=== PATIENT | male | born 1960 | race African-American/Black ===

== ENCOUNTER 2018-11-22 11:19 | Inpatient (IN) | payer OTHER ==
[2018-11-22 11:44] VITALS: BMI 27.3
--- NOTE | 2018-11-22 13:01 | HP ---
CIWA Score - Admission Criteria OASAS Guidelines: Admission for Medically Managed Detox: Requires at least one of the followin. CIWA greater than 12 2. Seizures within the past 24 hours 3. Delirium tremens within the past 24 hours 4. Hallucinations within the past 24 hours 5. Acute intervention needed for co occurring medical disorder 6. Acute intervention needed for co occurring psychiatric disorder 7. Severe withdrawal that cannot be handled at a lower level of care (continued vomiting, continued diarrhea, abnormal vital signs) requiring intravenous medication and/or fluids 8. Admission ROS [facility] Allergies/Adverse Reactions: Allergies Allergy/AdvReac Type Severity Reaction Status Date / Time No Known Allergies Allergy Verified 11/22/18 11:37 History of Present Illness: pt here requesting rehab from cocaine and etoh use , reports etoh use 4 x / week up to 1 pint , latets use 1 week ago , + tremors if not drinking alcohol, denies symptoms at this time, denies seizures or blackouts , first age of use 16 , with intermittent periods of sobriety , longest 5 years " I just stopped " cocaine : 80-100 $ / day , denies ivdu , latest use Sunday , denies daily use , reports 3 x/ week . denies other illicits tobacco : 1/2 ppd , interested in smoking cessation pmhx : htn , copd , HSV II ( penile ) , dizziness . pshx : denies psych : denies shx : lives alone , unemployed , on SSD for back pain , denies legal issues Exam Limitations: No Limitations - Ebola screening Have you traveled outside of the country in the last 21 days: No Have you had contact with anyone from an Ebola affected area: No Do you have a fever: No - Review of Systems Constitutional: No Symptoms Reported EENT: reports: No Symptoms Reported Respiratory: reports: No Symptoms reported Cardiac: reports: No Symptoms Reported GI: reports: No Symptoms Reported : reports: No Symptoms Reported Musculoskeletal: reports: No Symptoms Reported Integumentary: reports: Other (varicose vv R LE) Neuro: reports: No Symptoms reported Endocrine: reports: No Symptoms Reported Psychiatric: reports: Orientated x3 Patient History - Smoking Cessation Smoking history: Current every day smoker Have you smoked in the past 12 months: Yes Initiated information on smoking cessation: No - Substances abused Alcohol Substance route: Oral Frequency: Daily Amount used: VODKA- 1.5 Age of first use: 16 Date of last use: 11/18/18 Crack Substance route: Smoking Frequency: 3-6 times per week Amount used: $80 Age of first use: 24 Date of last use: 11/17/18 Family Disease History - Family Disease History Family Disease History: Heart Disease: Brother (2 d. heart dz ), Other: Father (d. cva), Mother (d. 80 tbi s/p fall ), Brother Other Family History: no children Admission Physical Exam S - Vital Signs Vital Signs: Vital Signs - 24 hr 11/22/18 11:34 Temperature 98.4 F Pulse Rate 90 Respiratory 18 Rate Blood Pressure 117/72 - Physical General Appearance: Yes: No Apparent Distress HEENTM: Yes: EOMI, Hearing grossly Normal, Normocephalic, Normal Voice, Other (g ;asses , upper and lower dentures) Respiratory: Yes: Chest Non-Tender, No Respiratory Distress, No Accessory Muscle Use Neck: Yes: No masses,lesions,Nodules, Trachea in good position Cardiology: Yes: Regular Rhythm, Regular Rate, S1, S2 Abdominal: Yes: Non Tender, Soft Genitourinary: Yes: Frequency Back: Yes: Normal Inspection Musculoskeletal: Yes: Gait Steady Extremities: Yes: Non-Tender Neurological: Yes: Fully Oriented, Alert, Motor Strength 5/5 Integumentary: Yes: Warm, Other (varicose vv R LE) - Diagnostic (1) Cocaine abuse Current Visit: Yes Status: Chronic (2) Alcohol abuse Current Visit: Yes Status: Chronic (3) Nicotine dependence Current Visit: Yes Status: Chronic Qualifiers: Nicotine product type: cigarettes Breathalyzer - Breathalyzer Breathalyzer: 0 Urine Drug Screen - Test Device Lot number: [id number] Expiration date: 08/15/20 - Control Is test valid?: Yes - Results Drug screen NEGATIVE: No Urine drug screen results: OBIE-Cocaine Inpatient Rehab Admission - Rehab Decision to Admit Inpatient rehab admission?: Yes - Initial Determination Are CD services needed?: Yes Free of communicable disease: Yes Not in need of hospitalization: Yes - Rehab Admission Criteria Previous failed treatment: Yes Poor recovery environment: No Comorbidities: No Lacks judgement: Yes Patient is meeting Inpatient Rehab admission criteria:: Yes
[2018-11-22] MEDS ORDERED: ACETAMINOPHEN 325 MG TABLET (FP) PO PRN (13:06)
[2018-11-22] MEDS ORDERED: P-EPHED 60MG/TRIPROLIDI 2.5MG TABLET PO PRN (13:06)
[2018-11-22] MEDS ORDERED: MAG HYDROX/AL HYDROX/SIMETH 30 ML UNIT-DOSE CUP PO PRN (13:06)
[2018-11-22] MEDS ORDERED: IBUPROFEN 400 MG TABLET (FP) PO PRN (13:06)
[2018-11-22] MEDS ORDERED: MENTHOL/PHENOL 1 EACH UD MM PRN (13:06)
[2018-11-22] MEDS ORDERED: MAGNESIUM CITRATE 300 ML BOTTLE PO PRN (13:06)
[2018-11-22] MEDS ORDERED: MAGNESIUM HYDROX 2400MG/30ML ORAL SUSPENSION 30 ML CUP PO PRN (13:06)
[2018-11-22] MEDS ORDERED: NICOTINE POLACRILEX 2 MG GUM BUC PRN (13:06)
[2018-11-22] MEDS ORDERED: guaiFENesin 200 MG/10 ML 10 ML UNIT-DOSE CUPS PO PRN (13:06)
[2018-11-22] MEDS ORDERED: ALBUTEROL SO4 0.083% IH SOL 2.5 MG/3 ML VIAL.NEB. NEB PRN (13:08)
[2018-11-22] MEDS ORDERED: TUBERCULIN PPD 5 TU/0.1ML VIAL ID ONE (14:52)
[2018-11-22 17:09] LABS: HEMATOCRIT 42.9 % (35.4-49); HEMOGLOBIN 13.5 GM/dL (11.7-16.9); MCHC 31.4 g/dl (32.0-35.9); MEAN CELL VOLUME 76.4 fl (80-96); MEAN PLT VOLUME 8.5 fl (7.5-11.1); PLATELET COUNT 166 K/MM3 (134-434); RBC 5.61 M/mm3 (4.00-5.60); RDW 14.4 % (11.9-15.9); WHITE BLOOD COUNT 5.2 K/mm3 (4.0-10.0)
[2018-11-22 17:11] LABS: ALBUMIN 3.7 g/dl (3.4-5.0); BILIRUBIN,TOTAL 0.3 mg/dL (0.2-1); CALCIUM 9.2 mg/dL (8.5-10.1); CREATININE 1.1 mg/dL (0.55-1.3); POTASSIUM 3.6 mmol/L (3.5-5.1); TOT PROT 7.1 g/dl (6.4-8.2)
[2018-11-22] MEDS: TAMSULOSIN HCL 0.4 MG CAP PO SCH (21:30)
[2018-11-22] MEDS: THIAMINE HCL 100 MG TABLET (FP) PO SCH (21:30)
[2018-11-22] MEDS: MELATONIN 5 MG TABLETS PO PRN (21:30)
[2018-11-23] MEDS: LISINOPRIL 10 MG TABLET (FP) PO SCH (09:41)
[2018-11-23] MEDS: PRENATAL VITAMINS W/ FOLIC ACID TABLET (FP) PO SCH (09:41)
[2018-11-23] MEDS: amLODIPine BESYLATE 10 MG TABLET (FP) PO SCH (09:41)
[2018-11-23] MEDS: valACYclovir HCL 500 MG TABLET (FP) PO SCH (09:41)
[2018-11-23] MEDS: TIOTROPIUM BROMIDE 2.5 MCG (SPIRIVA) RESPIMAT INHALER IH SCH (09:42)
[2018-11-23 11:56] LABS: EPI CELLS 16.4 /HPF (0-5/HPF); HYALINE CASTS 158 /lpf (0-8); URINE APPEARANCE CLOUDY; URINE BACTERIA 8.3 /hpf (NEGATIVE); URINE BILIRUBIN NEGATIVE (NEGATIVE); URINE COLOR DK YELLOW; URINE GLUCOSE (UA) NEGATIVE (NEGATIVE); URINE KETONE NEGATIVE (NEGATIVE); URINE LEUK ESTERASE 2+ (NEGATIVE); URINE NITRITE NEGATIVE (NEGATIVE); URINE PROTEIN TRACE (NEGATIVE); URINE RBC 8 /hpf (0-4); URINE WBC 88 /hpf (0-5)
[2018-11-23 12:25] LABS: URINE CRYSTALS CAOX PRESENT /hpf
[2018-11-23] MEDS: THIAMINE HCL 100 MG TABLET (FP) PO SCH (21:16)
[2018-11-23] MEDS: TAMSULOSIN HCL 0.4 MG CAP PO SCH (21:16)
[2018-11-23] MEDS: MELATONIN 5 MG TABLETS PO PRN (21:17)
[2018-11-23] MEDS: MECLIZINE HCL 25 MG TABLET (FP) PO PRN (21:17)
[2018-11-24] MEDS: MECLIZINE HCL 25 MG TABLET (FP) PO PRN ×2 (07:39→21:03)
[2018-11-24] MEDS: LISINOPRIL 10 MG TABLET (FP) PO SCH (09:32)
[2018-11-24] MEDS: valACYclovir HCL 500 MG TABLET (FP) PO SCH (09:33)
[2018-11-24] MEDS: amLODIPine BESYLATE 10 MG TABLET (FP) PO SCH (09:33)
[2018-11-24] MEDS: PRENATAL VITAMINS W/ FOLIC ACID TABLET (FP) PO SCH (09:33)
[2018-11-24] MEDS: TIOTROPIUM BROMIDE 2.5 MCG (SPIRIVA) RESPIMAT INHALER IH SCH (09:34)
[2018-11-24] MEDS: TAMSULOSIN HCL 0.4 MG CAP PO SCH (21:03)
[2018-11-24] MEDS: MELATONIN 5 MG TABLETS PO PRN (21:03)
[2018-11-24] MEDS: THIAMINE HCL 100 MG TABLET (FP) PO SCH (22:14)
[2018-11-25] MEDS: MECLIZINE HCL 25 MG TABLET (FP) PO PRN ×3 (07:37→21:12)
[2018-11-25] MEDS: LISINOPRIL 10 MG TABLET (FP) PO SCH (09:38)
[2018-11-25] MEDS: PRENATAL VITAMINS W/ FOLIC ACID TABLET (FP) PO SCH (09:38)
[2018-11-25] MEDS: valACYclovir HCL 500 MG TABLET (FP) PO SCH (09:38)
[2018-11-25] MEDS: amLODIPine BESYLATE 10 MG TABLET (FP) PO SCH (09:38)
[2018-11-25] MEDS: TIOTROPIUM BROMIDE 2.5 MCG (SPIRIVA) RESPIMAT INHALER IH SCH (09:39)
[2018-11-25] MEDS: THIAMINE HCL 100 MG TABLET (FP) PO SCH (21:11)
[2018-11-25] MEDS: MELATONIN 5 MG TABLETS PO PRN (21:12)
[2018-11-25] MEDS: TAMSULOSIN HCL 0.4 MG CAP PO SCH (21:12)
[2018-11-26] MEDS: amLODIPine BESYLATE 10 MG TABLET (FP) PO SCH (09:52)
[2018-11-26] MEDS: PRENATAL VITAMINS W/ FOLIC ACID TABLET (FP) PO SCH (09:52)
[2018-11-26] MEDS: valACYclovir HCL 500 MG TABLET (FP) PO SCH (09:52)
[2018-11-26] MEDS: LISINOPRIL 10 MG TABLET (FP) PO SCH (09:52)
[2018-11-26] MEDS: MECLIZINE HCL 25 MG TABLET (FP) PO PRN ×3 (09:53→21:41)
[2018-11-26] MEDS: TIOTROPIUM BROMIDE 2.5 MCG (SPIRIVA) RESPIMAT INHALER IH SCH (09:54)
[2018-11-26] MEDS: TAMSULOSIN HCL 0.4 MG CAP PO SCH (21:40)
[2018-11-26] MEDS: THIAMINE HCL 100 MG TABLET (FP) PO SCH (21:40)
[2018-11-26] MEDS: MELATONIN 5 MG TABLETS PO PRN (21:41)
[2018-11-27] MEDS: MECLIZINE HCL 25 MG TABLET (FP) PO PRN (07:27)
[2018-11-27] MEDS: amLODIPine BESYLATE 10 MG TABLET (FP) PO SCH (10:06)
[2018-11-27] MEDS: PRENATAL VITAMINS W/ FOLIC ACID TABLET (FP) PO SCH (10:06)
[2018-11-27] MEDS: LISINOPRIL 10 MG TABLET (FP) PO SCH (10:06)
[2018-11-27] MEDS: valACYclovir HCL 500 MG TABLET (FP) PO SCH (10:06)
[2018-11-27] MEDS: TIOTROPIUM BROMIDE 2.5 MCG (SPIRIVA) RESPIMAT INHALER IH SCH (10:07)
[2018-11-27] MEDS ORDERED: MECLIZINE HCL 25 MG TABLET (FP) PO ONE (14:00)
[2018-11-27] MEDS: THIAMINE HCL 100 MG TABLET (FP) PO SCH (21:08)
[2018-11-27] MEDS: MECLIZINE HCL 25 MG TABLET (FP) PO SCH (21:09)
[2018-11-27] MEDS: TAMSULOSIN HCL 0.4 MG CAP PO SCH (21:09)
[2018-11-27] MEDS: MELATONIN 5 MG TABLETS PO PRN (21:09)
[2018-11-28] MEDS: valACYclovir HCL 500 MG TABLET (FP) PO SCH (09:43)
[2018-11-28] MEDS: LISINOPRIL 10 MG TABLET (FP) PO SCH (09:43)
[2018-11-28] MEDS: PRENATAL VITAMINS W/ FOLIC ACID TABLET (FP) PO SCH (09:43)
[2018-11-28] MEDS: MECLIZINE HCL 25 MG TABLET (FP) PO SCH (09:43)
[2018-11-28] MEDS: TIOTROPIUM BROMIDE 2.5 MCG (SPIRIVA) RESPIMAT INHALER IH SCH (09:43)
[2018-11-28] MEDS: amLODIPine BESYLATE 10 MG TABLET (FP) PO SCH (09:43)
[2018-11-28] MEDS: MELATONIN 5 MG TABLETS PO PRN (21:18)
[2018-11-28] MEDS: MECLIZINE HCL 25 MG TABLET (FP) PO PRN (21:18)
[2018-11-28] MEDS: THIAMINE HCL 100 MG TABLET (FP) PO SCH (21:18)
[2018-11-28] MEDS: TAMSULOSIN HCL 0.4 MG CAP PO SCH (21:18)
[2018-11-29] MEDS: PRENATAL VITAMINS W/ FOLIC ACID TABLET (FP) PO SCH (10:12)
[2018-11-29] MEDS: amLODIPine BESYLATE 10 MG TABLET (FP) PO SCH (10:12)
[2018-11-29] MEDS: TIOTROPIUM BROMIDE 2.5 MCG (SPIRIVA) RESPIMAT INHALER IH SCH (10:12)
[2018-11-29] MEDS: valACYclovir HCL 500 MG TABLET (FP) PO SCH (10:12)
[2018-11-29] MEDS: MECLIZINE HCL 25 MG TABLET (FP) PO PRN ×2 (10:12→21:14)
[2018-11-29] MEDS: LISINOPRIL 10 MG TABLET (FP) PO SCH (10:12)
[2018-11-29] MEDS: THIAMINE HCL 100 MG TABLET (FP) PO SCH (21:14)
[2018-11-29] MEDS: TAMSULOSIN HCL 0.4 MG CAP PO SCH (21:15)
[2018-11-29] MEDS: MELATONIN 5 MG TABLETS PO PRN (21:15)
[2018-11-30] MEDS: amLODIPine BESYLATE 10 MG TABLET (FP) PO SCH (10:22)
[2018-11-30] MEDS: PRENATAL VITAMINS W/ FOLIC ACID TABLET (FP) PO SCH (10:22)
[2018-11-30] MEDS: LISINOPRIL 10 MG TABLET (FP) PO SCH (10:22)
[2018-11-30] MEDS: valACYclovir HCL 500 MG TABLET (FP) PO SCH (10:22)
[2018-11-30] MEDS: TIOTROPIUM BROMIDE 2.5 MCG (SPIRIVA) RESPIMAT INHALER IH SCH (10:23)
[2018-11-30] MEDS: MECLIZINE HCL 25 MG TABLET (FP) PO PRN ×2 (10:24→21:46)
[2018-11-30] MEDS: THIAMINE HCL 100 MG TABLET (FP) PO SCH (21:46)
[2018-11-30] MEDS: MELATONIN 5 MG TABLETS PO PRN (21:46)
[2018-11-30] MEDS: TAMSULOSIN HCL 0.4 MG CAP PO SCH (21:46)
[2018-12-01] MEDS: MECLIZINE HCL 25 MG TABLET (FP) PO PRN ×2 (09:28→21:16)
[2018-12-01] MEDS: LISINOPRIL 10 MG TABLET (FP) PO SCH (09:28)
[2018-12-01] MEDS: valACYclovir HCL 500 MG TABLET (FP) PO SCH (09:28)
[2018-12-01] MEDS: amLODIPine BESYLATE 10 MG TABLET (FP) PO SCH (09:28)
[2018-12-01] MEDS: TIOTROPIUM BROMIDE 2.5 MCG (SPIRIVA) RESPIMAT INHALER IH SCH (09:28)
[2018-12-01] MEDS: PRENATAL VITAMINS W/ FOLIC ACID TABLET (FP) PO SCH (09:28)
[2018-12-01] MEDS: TAMSULOSIN HCL 0.4 MG CAP PO SCH (21:16)
[2018-12-01] MEDS: THIAMINE HCL 100 MG TABLET (FP) PO SCH (21:16)
[2018-12-01] MEDS: MELATONIN 5 MG TABLETS PO PRN (21:16)
[2018-12-02] MEDS: valACYclovir HCL 500 MG TABLET (FP) PO SCH (09:45)
[2018-12-02] MEDS: MECLIZINE HCL 25 MG TABLET (FP) PO PRN ×2 (09:45→22:10)
[2018-12-02] MEDS: PRENATAL VITAMINS W/ FOLIC ACID TABLET (FP) PO SCH (09:45)
[2018-12-02] MEDS: LISINOPRIL 10 MG TABLET (FP) PO SCH (09:45)
[2018-12-02] MEDS: amLODIPine BESYLATE 10 MG TABLET (FP) PO SCH (09:45)
[2018-12-02] MEDS: TIOTROPIUM BROMIDE 2.5 MCG (SPIRIVA) RESPIMAT INHALER IH SCH (09:46)
[2018-12-02] MEDS: MELATONIN 5 MG TABLETS PO PRN (21:28)
[2018-12-02] MEDS: THIAMINE HCL 100 MG TABLET (FP) PO SCH (21:28)
[2018-12-02] MEDS: TAMSULOSIN HCL 0.4 MG CAP PO SCH (21:28)
[2018-12-03] MEDS: MECLIZINE HCL 25 MG TABLET (FP) PO PRN ×2 (10:08→21:18)
[2018-12-03] MEDS: valACYclovir HCL 500 MG TABLET (FP) PO SCH (10:08)
[2018-12-03] MEDS: TIOTROPIUM BROMIDE 2.5 MCG (SPIRIVA) RESPIMAT INHALER IH SCH (10:08)
[2018-12-03] MEDS: PRENATAL VITAMINS W/ FOLIC ACID TABLET (FP) PO SCH (10:09)
[2018-12-03] MEDS: amLODIPine BESYLATE 10 MG TABLET (FP) PO SCH (10:09)
[2018-12-03] MEDS: LISINOPRIL 10 MG TABLET (FP) PO SCH (10:09)
[2018-12-03] MEDS: TAMSULOSIN HCL 0.4 MG CAP PO SCH (21:18)
[2018-12-03] MEDS: THIAMINE HCL 100 MG TABLET (FP) PO SCH (21:18)
[2018-12-03] MEDS: MELATONIN 5 MG TABLETS PO PRN (21:18)
[2018-12-04] MEDS: valACYclovir HCL 500 MG TABLET (FP) PO SCH (10:05)
[2018-12-04] MEDS: LISINOPRIL 10 MG TABLET (FP) PO SCH (10:05)
[2018-12-04] MEDS: amLODIPine BESYLATE 10 MG TABLET (FP) PO SCH (10:05)
[2018-12-04] MEDS: PRENATAL VITAMINS W/ FOLIC ACID TABLET (FP) PO SCH (10:05)
[2018-12-04] MEDS: TIOTROPIUM BROMIDE 2.5 MCG (SPIRIVA) RESPIMAT INHALER IH SCH (10:05)
[2018-12-04] MEDS: MECLIZINE HCL 25 MG TABLET (FP) PO PRN ×2 (10:06→21:20)
[2018-12-04] MEDS: THIAMINE HCL 100 MG TABLET (FP) PO SCH (21:20)
[2018-12-04] MEDS: TAMSULOSIN HCL 0.4 MG CAP PO SCH (21:20)
[2018-12-04] MEDS: MELATONIN 5 MG TABLETS PO PRN (21:20)
[2018-12-05] MEDS: LISINOPRIL 10 MG TABLET (FP) PO SCH (10:05)
[2018-12-05] MEDS: MECLIZINE HCL 25 MG TABLET (FP) PO PRN ×2 (10:05→21:52)
[2018-12-05] MEDS: TIOTROPIUM BROMIDE 2.5 MCG (SPIRIVA) RESPIMAT INHALER IH SCH (10:05)
[2018-12-05] MEDS: PRENATAL VITAMINS W/ FOLIC ACID TABLET (FP) PO SCH (10:05)
[2018-12-05] MEDS: valACYclovir HCL 500 MG TABLET (FP) PO SCH (10:05)
[2018-12-05] MEDS: amLODIPine BESYLATE 10 MG TABLET (FP) PO SCH (10:05)
[2018-12-05] MEDS: THIAMINE HCL 100 MG TABLET (FP) PO SCH (21:51)
[2018-12-05] MEDS: TAMSULOSIN HCL 0.4 MG CAP PO SCH (21:51)
--- NOTE | 2018-12-05 23:53 | PN ---
[facility] Progress Note (SOAP) Subjective: PT IS SCHEDULED FOR DISCHARGE THIS MORNING. PT REPORTS HE HAS A PCP AT [facility] FOR MEDICAL MANAGEMENT. PT IS ALERT O X 3. DENIES S/H/ I IDEATIONS. Objective: 12/06/18 00:13 Home Medications Medication Instructions Recorded Albuterol Sulfate Inhaler - 1 - 2 inh PO QID PRN 11/22/18 [Ventolin Hfa Inhaler -] Amlodipine Besylate 10 mg PO DAILY 11/22/18 Lisinopril 10 mg PO DAILY 11/22/18 Meclizine HCl 25 mg PO TID PRN 11/22/18 Tamsulosin HCl [Flomax] 0.4 mg PO HS 11/22/18 Tiotropium [place] [Spiriva 2 gm IH DAILY 11/22/18 Respimat] Valacyclovir HCl [Valtrex] 500 mg PO DAILY 11/22/18 Laboratory Tests 11/22/18 11/22/18 11/22/18 13:30 13:30 13:30 WBC 5.2 RBC 5.61 H Hgb 13.5 Hct 42.9 MCV 76.4 L MCH 24.0 L MCHC 31.4 L RDW 14.4 Plt Count 166 MPV 8.5 Sodium 140 Potassium 3.6 Chloride 107 Carbon Dioxide 27 Anion Gap 6 L BUN 8 Creatinine 1.1 Est GFR (CKD-EPI)AfAm 84.12 Est GFR (CKD-EPI)NonAf 72.58 Random Glucose 97 Calcium 9.2 Total Bilirubin 0.3 AST 19 ALT 34 Alkaline Phosphatase 63 Total Protein 7.1 Albumin 3.7 Urine Color Urine Appearance Urine pH Ur Specific [place] Urine Protein Urine Glucose (UA) Urine Ketones Urine Blood Urine Nitrite Urine Bilirubin Urine Urobilinogen Ur Leukocyte Esterase Urine WBC (Auto) Urine RBC (Auto) Urine Casts (Auto) U Epithel Cells (Auto) U Sm Round Cell (Auto) Urine Crystals (Auto) Urine Bacteria (Auto) RPR Titer Nonreactive HIV 1&2 Antibody Screen HIV P24 Antigen 11/22/18 11/23/18 13:30 08:30 WBC RBC Hgb Hct MCV MCH MCHC RDW Plt Count MPV Sodium Potassium Chloride Carbon Dioxide Anion Gap BUN Creatinine Est GFR (CKD-EPI)AfAm Est GFR (CKD-EPI)NonAf Random Glucose Calcium Total Bilirubin AST ALT Alkaline Phosphatase Total Protein Albumin Urine Color Dk yellow Urine Appearance Cloudy Urine pH 7.0 Ur Specific [place] 1.026 Urine Protein Trace Urine Glucose (UA) Negative Urine Ketones Negative Urine Blood Negative Urine Nitrite Negative Urine Bilirubin Negative Urine Urobilinogen 1.0 Ur Leukocyte Esterase 2+ H Urine WBC (Auto) 88 Urine RBC (Auto) 8 Urine Casts (Auto) 158 U Epithel Cells (Auto) 16.4 U Sm Round Cell (Auto) None seen Urine Crystals (Auto) Caox present Urine Bacteria (Auto) 8.3 RPR Titer HIV 1&2 Antibody Screen Negative HIV P24 Antigen Negative Assessment: 12/06/18 00:14 WNAD MEDICALLY STABLE FOR DISCHARGE Plan: FOLLOW UP WITH CD RECOMMENDATIONS FOLLOW UP WITH PCP WITHIN 1-2 WEEKS FOR MEDICAL MANAGEMENT AFTER DISCHARGE
[2018-12-06 07:09] VITALS: BP 119/86; PULSE 95; TEMP 97.6
[2018-12-06] MEDS ORDERED: PT OWN MED DRAWER 7, Y5N ONE (08:20)
== END 2018-12-06 09:00 | disposition home or self-care (01) | DRG 772 ==
LOC: YASAS 11:19 → Y3W 13:55
PROVIDERS: ADMIT Neuromusculoskeletal Medicine & OMM; ATTEND Neuromusculoskeletal Medicine & OMM
PROC: HZ42ZZZ Group Counseling for Substance Abuse Treatment, Cognitive-Behavioral (ICD-10-PCS; principal; 2018-11-22)
DX: F10.20 Alcohol dependence, uncomplicated (principal); F14.20 Cocaine dependence, uncomplicated; F17.210 Nicotine dependence, cigarettes, uncomplicated
CPT/HCPCS: 36415; 80053; 81003; 85027; 86593; 87389

== ENCOUNTER 2019-07-18 09:46 | Inpatient (IN) | payer OTHER ==
[2019-07-18 10:23] VITALS: BMI 26.9
--- NOTE | 2019-07-18 10:53 | HP ---
CIWA Score Nausea/Vomitin-No Nausea/No Vomiting Muscle Tremors: None Anxiety: 1-Mildly Anxious Agitation: 1-Slight > Activity Paroxysmal Sweats: No Perspiration Orientation: 0-Oriented Tacttile Disturbances: 0-None Auditory Disturbances: 0-None Visual Disturbances: 0-None Headache: 0-None Present CIWA-Ar Total Score: 2 - Admission Criteria OASAS Guidelines: Admission for Medically Managed Detox: Requires at least one of the followin. CIWA greater than 12 2. Seizures within the past 24 hours 3. Delirium tremens within the past 24 hours 4. Hallucinations within the past 24 hours 5. Acute intervention needed for co occurring medical disorder 6. Acute intervention needed for co occurring psychiatric disorder 7. Severe withdrawal that cannot be handled at a lower level of care (continued vomiting, continued diarrhea, abnormal vital signs) requiring intravenous medication and/or fluids 8. Admitting History and Physical - Admission Chief Complaint: i am here for rehab from cocaine,alcohol disorder History of Present Illness: tis 59 years old male with cocaine dependence and alcohol disorder for rehab history of hypertension,copd,nicotine dependence History Source: Patient - Past Medical History Cardiovascular: Yes: HTN Pulmonary: Yes: COPD Renal/: Yes: Renal Calculi Psych: Yes: Schizophrenia - Smoking History Smoking history: Current every day smoker Have you smoked in the past 12 months: Yes Aproximately how many cigarettes per day: 10 - Alcohol/Substance Use Hx Alcohol Use: Yes History of Substance Use: reports: Cocaine - Social History Usual Living Arrangement: Yes: Alone ADL: Support Services Occupation: unemployed on ssi Admission ROS S - HPI Chief Complaint: i need help for rehab from cocaine,alcohol Allergies/Adverse Reactions: Allergies Allergy/AdvReac Type Severity Reaction Status Date / Time No Known Allergies Allergy Verified 07/18/19 10:09 History of Present Illness: this 49 years old male with cocaine dependence,alcohol disorder,for rehab history of htn,kidney stones denied seizure denied syncope nicotine dependence schizophrenia longest sobriety 4 years unemploed,on ssi and support has out patient program Exam Limitations: No Limitations - Ebola screening Have you traveled outside of the country in the last 21 days: No Have you had contact with anyone from an Ebola affected area: No - Review of Systems Constitutional: No Symptoms Reported EENT: reports: No Symptoms Reported Respiratory: reports: Other (copd) Cardiac: reports: No Symptoms Reported GI: reports: No Symptoms Reported : reports: No Symptoms Reported, Other (kidney stone) Musculoskeletal: reports: No Symptoms Reported Integumentary: reports: No Symptoms Reported Neuro: reports: No Symptoms reported Endocrine: reports: No Symptoms Reported Hematology: reports: No Symptoms Reported Psychiatric: reports: No Sypmtoms Reported, Judgement Intact, Mood/Affect Appropiate, Orientated x3 (schizophrenia) Other Systems: Reviewed and Negative Patient History - Patient Medical History Hx Anemia: No Hx Asthma: No Hx Chronic Obstructive Pulmonary Disease (COPD): Yes Hx Cardiac Disorders: No Hx Hypertension: Yes (on meds) Hx Hypercholesterolemia: No Hx Pacemaker: No HX Cerebrovascular Accident: No Hx Seizures: No Hx Dementia: No Hx Diabetes: No Hx Gastrointestinal Disorders: No Hx Liver Disease: No Hx Genitourinary Disorders: No Hx Sexually Transmitted Disorders: No Hx Renal Disease (ESRD): No Hx Thyroid Disease: No Hx Human Immunodeficiency Virus (HIV): No (last 03/03 negative) Hx Hepatitis C: No Hx Depression: No Hx Suicide Attempt: No Hx Schizophrenia: No - Patient Surgical History Past Surgical History: No - PPD History Previous Implant?: Yes Documented Results: Negative w/proof Implanted On Prior [facility] Admission?: Yes Date: 11/24/18 Results: 0 mm PPD to be Administered?: No - Smoking Cessation Smoking history: Current every day smoker Have you smoked in the past 12 months: Yes Aproximately how many cigarettes per day: 10 Hx Chewing Tobacco Use: No Initiated information on smoking cessation: Yes 'Breaking Loose' booklet given: 07/18/19 - Substance & Tx. History Hx Alcohol Use: Yes Hx Substance Use: Yes Substance Use Type: Alcohol, Cocaine Hx Substance Use Treatment: Yes ([facility] 11/22/18 to 12/06/18) - Substances abused Alcohol Substance route: Oral Frequency: 3-6 times per week Amount used: 1 PINT EVERY OTHER DAY Age of first use: 16 Date of last use: 07/16/19 Crack Substance route: Smoking Frequency: Daily Amount used: $200/ EVERY TIME Age of first use: 24 Date of last use: 07/16/19 Admission Physical Exam [facility] - Vital Signs Vital Signs: Vital Signs - 24 hr 07/18/19 10:08 Temperature 97.9 F Pulse Rate 96 H Respiratory 17 Rate Blood Pressure 127/74 - Physical General Appearance: Yes: Within Normal Limits HEENTM: Yes: Within Normal Limits, Normal ENT Inspection, TONI Respiratory: Yes: Within Normal Limits, Lungs Clear, Normal Breath Sounds Neck: Yes: Within Normal Limits, Supple, Trachea in good position Breast: Yes: Within Normal Limits Cardiology: Yes: Within Normal Limits, Regular Rhythm, Regular Rate, S1, S2 Abdominal: Yes: Within Normal Limits, Normal Bowel Sounds, Non Tender, Flat, Soft Genitourinary: Yes: Within Normal Limits Back: Yes: Within Normal Limits Musculoskeletal: Yes: Within Normal Limits Extremities: Yes: Within Normal Limits Neurological: Yes: customer service supervisor II-XII NML intact, Fully Oriented, Alert, Motor Strength 5/5 Integumentary: Yes: Within Normal Limits Lymphatic: Yes: Within Normal Limits - Diagnostic (1) Cocaine dependence Current Visit: Yes Status: Chronic (2) Alcohol abuse Current Visit: No Status: Chronic (3) Nicotine dependence Current Visit: Yes Status: Chronic Qualifiers: Nicotine product type: cigarettes (4) Schizophrenia Current Visit: Yes Status: Chronic Comment: As per self-report. (5) Kidney stones Current Visit: Yes Status: Acute Cleared for Admission BHS - Detox or Rehab Claeared for Rehab Admission: Yes Breathalyzer - Breathalyzer Breathalyzer: 0 Urine Drug Screen - Test Device Lot number: [id number] Expiration date: 04/14/21 - Control Is test valid?: Yes - Results Drug screen NEGATIVE: No Urine drug screen results: OBIE-Cocaine, BZO-Benzodiazepines Inpatient Rehab Admission - Rehab Decision to Admit Inpatient rehab admission?: Yes - Initial Determination Are CD services needed?: Yes Free of communicable disease: Yes Not in need of hospitalization: Yes - Rehab Admission Criteria Previous failed treatment: Yes Poor recovery environment: Yes Comorbidities: Yes Lacks judgement: No Patient is meeting Inpatient Rehab admission criteria:: Yes
[2019-07-18] MEDS ORDERED: MAG HYDROX/AL HYDROX/SIMETH 30 ML UNIT-DOSE CUP PO PRN (11:01)
[2019-07-18] MEDS ORDERED: P-EPHED 60MG/TRIPROLIDI 2.5MG TABLET PO PRN (11:01)
[2019-07-18] MEDS ORDERED: LOPERAMIDE HCL 2 MG CAPSULE PO PRN (11:01)
[2019-07-18] MEDS ORDERED: MAGNESIUM HYDROX 2400MG/30ML ORAL SUSPENSION 30 ML CUP PO PRN (11:01)
[2019-07-18] MEDS ORDERED: guaiFENesin 200 MG/10 ML 10 ML UNIT-DOSE CUPS PO PRN (11:01)
[2019-07-18] MEDS ORDERED: hydrOXYzine PAMOATE 25 MG CAPSULE (FP) PO PRN (11:01)
[2019-07-18] MEDS ORDERED: IBUPROFEN 400 MG TABLET (FP) PO PRN (11:01)
[2019-07-18] MEDS ORDERED: ACETAMINOPHEN 325 MG TABLET (FP) PO PRN (11:01)
[2019-07-18] MEDS ORDERED: MENTHOL/PHENOL 1 EACH UD MM PRN (11:01)
[2019-07-18] MEDS ORDERED: MAGNESIUM CITRATE 300 ML BOTTLE PO PRN (11:01)
[2019-07-18] MEDS ORDERED: ALBUTEROL SO4 HFA INHALER IH PRN (11:03)
--- NOTE | 2019-07-18 14:26 | PN ---
S Progress Note Note: Pt is a 59 y/o male with a hx of IVETT admitted to rehab today from [facility]. PMHx of COPD,HTN, BPH and Renal Calculi. Psych hx of Schizophrenia. Vital Signs - 24 hr 07/18/19 07/18/19 10:08 12:25 Temperature 97.9 F 98.6 F Pulse Rate 96 H 101 H Respiratory 17 18 Rate Blood Pressure 127/74 109/62 Labs drawn and results pending Alert o x 3 nad oob ambulating with steady gait. Extremities/skin:right lower leg with varicose veins; left leg wnl; skin intact. A/P new patient to rehab Maintain safety continue rehab Reji stockings apply as directed meds reviewed. folow up with psych consult.
[2019-07-18 15:31] LABS: HEMATOCRIT 42.3 % (35.4-49); HEMOGLOBIN 13.1 GM/dL (11.7-16.9); MCH 23.8 pg (25.7-33.7); MEAN CELL VOLUME 76.8 fl (80-96); MEAN PLT VOLUME 8.3 fl (7.5-11.1); PLATELET COUNT 177 K/MM3 (134-434); RBC 5.51 M/mm3 (4.00-5.60); RDW 14.5 % (11.9-15.9); WHITE BLOOD COUNT 6.2 K/mm3 (4.0-10.0)
[2019-07-18 15:42] LABS: ALBUMIN 3.4 g/dl (3.4-5.0); BILIRUBIN,TOTAL 0.4 mg/dL (0.2-1); BLOOD UREA NITROGEN 16.8 mg/dL (7-18); CALCIUM 8.4 mg/dL (8.5-10.1); CREATININE 1.2 mg/dL (0.55-1.3); POTASSIUM 3.4 mmol/L (3.5-5.1); TOT PROT 6.6 g/dl (6.4-8.2)
--- NOTE | 2019-07-18 16:49 | CONSULT ---
[facility] Psychiatric Consult - Data Date of interview: 07/18/19 Admission source: [facility] Identifying data: Revisit to [facility] and direct admission to [address] from the community for this 59 y/o AA male who presented for rehabilitative care to address his IVETT issues (alcohol, crack/cocaine, nicotine ) co-morbid with paranoid schizophrenia. Patient is , no dependents, domiciled (living with spouse), unemployed and supported on [facility] benefits. Substance Abuse History: Discussed with patient. Details in current [facility] report as follows : Smoking history: Current every day smoker. Have you smoked in the past 12 months: Yes. Aproximately how many cigarettes per day: 10. Hx Chewing Tobacco Use: No. Initiated information on smoking cessation: Yes. 'Breaking Loose' booklet given: 07/18/19. - Substance & Tx. History. Hx Alcohol Use: Yes. Hx Substance Use: Yes. Substance Use Type: Alcohol, Cocaine. Hx Substance Use Treatment: Yes ([facility] 11/22/18 to 12/06/18). - Substances abused. Alcohol. Substance route: Oral. Frequency: 3-6 times per week. Amount used : 1 PINT EVERY OTHER DAY. Age of first use: 16. Date of last use: 07/16/19. * * Crack. Substance route: Smoking. Frequency: Daily. Amount used: $200/ EVERY TIME. Age of first use: 24. Date of last use: 07/16/19 Medical History: Medical profile is remarkable for hypertension, past treatment for renal calculi, COPD and benign prostatic hyperplasia (BPH). Psychiatric History: Patient admits to a distant history of psychiatric hospitalizations ([facility]). Diagnosed with Paranoid Schizophrenia. Mr Burger reports current psychiatric OPD care at the [facility] in the [place]. Sees a psychiatrist + therapist for therapy and medication management (risperdal 1 mg/hs + trazodone 50 mg/hs). Patient endorses good adherence to his medications (reportedly taken prior to admission to [facility]). Denies history of suicide attempts. Physical/Sexual Abuse/Trauma History: Patient denies. Additional Comment: Urine drug screen results: OBIE-Cocaine, BZO- Benzodiazepines. Noted. Mental Status Exam - Mental Status Exam Alert and Oriented to: Time, Place, Person Cognitive Function: Good Patient Appearance: Well Groomed Mood: Hopeful, Euthymic Affect: Appropriate, Normal Range Patient Behavior: Appropriate (well-mannered, friendly on approach), Cooperative Speech Pattern: Clear, Appropriate Voice Loudness: Normal Thought Process: Intact, Goal Oriented Thought Disorder: Not Present Hallucinations: Denies Suicidal Ideation: Denies Homicidal Ideation: Denies Insight/Judgement: Fair Sleep: Well Appetite: Good Muscle strength/Tone: Normal Gait/Station: Normal Psychiatric Findings - Problem List ([place] 1, 2,3) (1) Alcohol use disorder Current Visit: Yes Status: Chronic (2) Cocaine dependence Current Visit: Yes Status: Chronic (3) Nicotine dependence Current Visit: Yes Status: Chronic Qualifiers: Nicotine product type: cigarettes (4) Schizophrenia Current Visit: Yes Status: Chronic Comment: As per self-report. - Initial Treatment Plan Initial Treatment Plan: Psychoeducation. Sleep hygiene. Support. AA meetings. MAT services revisited with patient. Groups. Resumed : risperdal 2 mg po hs + trazodone 50 mg po hs. Side effects/benefits of both drugs are discussed with the patient. Mr Burger is reminded of risk of priapism, dystonias, tardive dyskinesia, akathisia, galactorrhea, gynecomastia and cardiovascular adverse events. He states that he is in agreement with this plan of care. Verbal informed consent received from the patient. Observation. Medications are confirmed via telephone contact with pharmacist at [facility] ([phone]) : refills for risperdal 3 mg/hs + trazodone 50 mg/hs were filed on . Observation.
[2019-07-18] MEDS: risperiDONE 2 MG TABLET PO SCH (21:47)
[2019-07-18] MEDS: traZODone HCL 50 MG TABLET (FP) PO SCH (21:47)
[2019-07-18] MEDS: TAMSULOSIN HCL 0.4 MG CAP PO SCH (21:47)
[2019-07-18] MEDS: THIAMINE HCL 100 MG TABLET (FP) PO SCH (21:47)
[2019-07-18] MEDS ORDERED: MELATONIN 5 MG TABLETS PO PRN (22:00)
[2019-07-19] MEDS: amLODIPine BESYLATE 10 MG TABLET (FP) PO SCH (11:02)
[2019-07-19] MEDS: LISINOPRIL 10 MG TABLET (FP) PO SCH (11:02)
[2019-07-19] MEDS: PRENATAL VITAMINS W/ FOLIC ACID TABLET (FP) PO SCH (11:03)
[2019-07-19] MEDS: FINASTERIDE 5 MG TABLET (FP) PO SCH (11:04)
[2019-07-19] MEDS: THIAMINE HCL 100 MG TABLET (FP) PO SCH (21:02)
[2019-07-19] MEDS: risperiDONE 2 MG TABLET PO SCH (21:02)
[2019-07-19] MEDS: TAMSULOSIN HCL 0.4 MG CAP PO SCH (21:02)
[2019-07-19] MEDS: traZODone HCL 50 MG TABLET (FP) PO SCH (21:03)
[2019-07-20] MEDS: LISINOPRIL 10 MG TABLET (FP) PO SCH (09:42)
[2019-07-20] MEDS: PRENATAL VITAMINS W/ FOLIC ACID TABLET (FP) PO SCH (09:42)
[2019-07-20] MEDS: amLODIPine BESYLATE 10 MG TABLET (FP) PO SCH (09:42)
[2019-07-20] MEDS: FINASTERIDE 5 MG TABLET (FP) PO SCH (09:43)
[2019-07-20 13:35] LABS: EPI CELLS 0.5 /HPF (0-5/HPF); HYALINE CASTS 27 /lpf (0-8); PH,URINE 6.5 (5.0-8.0); URINE APPEARANCE CLEAR; URINE BACTERIA 90.3 /hpf (NEGATIVE); URINE BILIRUBIN NEGATIVE (NEGATIVE); URINE COLOR YELLOW; URINE GLUCOSE (UA) NEGATIVE (NEGATIVE); URINE KETONE NEGATIVE (NEGATIVE); URINE LEUK ESTERASE 3+ (NEGATIVE); URINE NITRITE NEGATIVE (NEGATIVE); URINE PROTEIN NEGATIVE (NEGATIVE); URINE RBC 8 /hpf (0-4); URINE UROBILINOGEN 0.2 mg/dL (0.2-1.0); URINE WBC 62 /hpf (0-5)
[2019-07-20] MEDS: risperiDONE 2 MG TABLET PO SCH (21:06)
[2019-07-20] MEDS: TAMSULOSIN HCL 0.4 MG CAP PO SCH (21:06)
[2019-07-20] MEDS: traZODone HCL 50 MG TABLET (FP) PO SCH (21:06)
[2019-07-20] MEDS: THIAMINE HCL 100 MG TABLET (FP) PO SCH (21:07)
[2019-07-21] MEDS: LISINOPRIL 10 MG TABLET (FP) PO SCH (10:00)
[2019-07-21] MEDS: amLODIPine BESYLATE 10 MG TABLET (FP) PO SCH (10:00)
[2019-07-21] MEDS: PRENATAL VITAMINS W/ FOLIC ACID TABLET (FP) PO SCH (10:00)
[2019-07-21] MEDS: FINASTERIDE 5 MG TABLET (FP) PO SCH (10:00)
[2019-07-21] MEDS: valACYclovir HCL 500 MG TABLET (FP) PO SCH (15:40)
[2019-07-21] MEDS: MECLIZINE HCL 25 MG TABLET (FP) PO PRN ×2 (15:41→21:11)
[2019-07-21] MEDS: risperiDONE 2 MG TABLET PO SCH (21:09)
[2019-07-21] MEDS: THIAMINE HCL 100 MG TABLET (FP) PO SCH (21:09)
[2019-07-21] MEDS: TAMSULOSIN HCL 0.4 MG CAP PO SCH (21:09)
[2019-07-21] MEDS: traZODone HCL 50 MG TABLET (FP) PO SCH (21:10)
[2019-07-22] MEDS: valACYclovir HCL 500 MG TABLET (FP) PO SCH (09:59)
[2019-07-22] MEDS: FINASTERIDE 5 MG TABLET (FP) PO SCH (09:59)
[2019-07-22] MEDS: amLODIPine BESYLATE 10 MG TABLET (FP) PO SCH (09:59)
[2019-07-22] MEDS: LISINOPRIL 10 MG TABLET (FP) PO SCH (09:59)
[2019-07-22] MEDS: PRENATAL VITAMINS W/ FOLIC ACID TABLET (FP) PO SCH (09:59)
[2019-07-22] MEDS: MECLIZINE HCL 25 MG TABLET (FP) PO PRN ×2 (10:00→21:04)
[2019-07-22] MEDS: THIAMINE HCL 100 MG TABLET (FP) PO SCH (21:02)
[2019-07-22] MEDS: TAMSULOSIN HCL 0.4 MG CAP PO SCH (21:02)
[2019-07-22] MEDS: traZODone HCL 50 MG TABLET (FP) PO SCH (21:03)
[2019-07-22] MEDS: risperiDONE 2 MG TABLET PO SCH (21:03)
[2019-07-23] MEDS: amLODIPine BESYLATE 10 MG TABLET (FP) PO SCH (10:06)
[2019-07-23] MEDS: PRENATAL VITAMINS W/ FOLIC ACID TABLET (FP) PO SCH (10:06)
[2019-07-23] MEDS: valACYclovir HCL 500 MG TABLET (FP) PO SCH (10:06)
[2019-07-23] MEDS: LISINOPRIL 10 MG TABLET (FP) PO SCH (10:06)
[2019-07-23] MEDS: FINASTERIDE 5 MG TABLET (FP) PO SCH (10:06)
[2019-07-23] MEDS: MECLIZINE HCL 25 MG TABLET (FP) PO PRN ×3 (10:07→21:09)
[2019-07-23] MEDS: TAMSULOSIN HCL 0.4 MG CAP PO SCH (21:08)
[2019-07-23] MEDS: THIAMINE HCL 100 MG TABLET (FP) PO SCH (21:08)
[2019-07-23] MEDS: risperiDONE 2 MG TABLET PO SCH (21:10)
[2019-07-23] MEDS: traZODone HCL 50 MG TABLET (FP) PO SCH (21:10)
[2019-07-24] MEDS: PRENATAL VITAMINS W/ FOLIC ACID TABLET (FP) PO SCH (10:05)
[2019-07-24] MEDS: LISINOPRIL 10 MG TABLET (FP) PO SCH (10:05)
[2019-07-24] MEDS: valACYclovir HCL 500 MG TABLET (FP) PO SCH (10:05)
[2019-07-24] MEDS: amLODIPine BESYLATE 10 MG TABLET (FP) PO SCH (10:05)
[2019-07-24] MEDS: FINASTERIDE 5 MG TABLET (FP) PO SCH (10:05)
[2019-07-24] MEDS: MECLIZINE HCL 25 MG TABLET (FP) PO PRN ×3 (10:07→21:04)
[2019-07-24] MEDS: TAMSULOSIN HCL 0.4 MG CAP PO SCH (21:04)
[2019-07-24] MEDS: risperiDONE 2 MG TABLET PO SCH (21:04)
[2019-07-24] MEDS: THIAMINE HCL 100 MG TABLET (FP) PO SCH (21:04)
[2019-07-24] MEDS: traZODone HCL 50 MG TABLET (FP) PO SCH (21:04)
[2019-07-25] MEDS: MECLIZINE HCL 25 MG TABLET (FP) PO PRN ×2 (07:21→21:03)
[2019-07-25] MEDS: valACYclovir HCL 500 MG TABLET (FP) PO SCH (10:05)
[2019-07-25] MEDS: amLODIPine BESYLATE 10 MG TABLET (FP) PO SCH (10:05)
[2019-07-25] MEDS: LISINOPRIL 10 MG TABLET (FP) PO SCH (10:05)
[2019-07-25] MEDS: FINASTERIDE 5 MG TABLET (FP) PO SCH (10:05)
[2019-07-25] MEDS: PRENATAL VITAMINS W/ FOLIC ACID TABLET (FP) PO SCH (10:05)
[2019-07-25] MEDS: TAMSULOSIN HCL 0.4 MG CAP PO SCH (21:01)
[2019-07-25] MEDS: THIAMINE HCL 100 MG TABLET (FP) PO SCH (21:01)
[2019-07-25] MEDS: traZODone HCL 50 MG TABLET (FP) PO SCH (21:04)
[2019-07-25] MEDS: risperiDONE 2 MG TABLET PO SCH (21:04)
[2019-07-26] MEDS: MECLIZINE HCL 25 MG TABLET (FP) PO PRN ×3 (07:13→21:04)
[2019-07-26] MEDS: amLODIPine BESYLATE 10 MG TABLET (FP) PO SCH (09:49)
[2019-07-26] MEDS: valACYclovir HCL 500 MG TABLET (FP) PO SCH (09:49)
[2019-07-26] MEDS: PRENATAL VITAMINS W/ FOLIC ACID TABLET (FP) PO SCH (09:49)
[2019-07-26] MEDS: LISINOPRIL 10 MG TABLET (FP) PO SCH (09:49)
[2019-07-26] MEDS: FINASTERIDE 5 MG TABLET (FP) PO SCH (09:50)
[2019-07-26] MEDS: TAMSULOSIN HCL 0.4 MG CAP PO SCH (21:02)
[2019-07-26] MEDS: THIAMINE HCL 100 MG TABLET (FP) PO SCH (21:02)
[2019-07-26] MEDS: risperiDONE 2 MG TABLET PO SCH (21:03)
[2019-07-26] MEDS: traZODone HCL 50 MG TABLET (FP) PO SCH (21:03)
[2019-07-27] MEDS: valACYclovir HCL 500 MG TABLET (FP) PO SCH (09:36)
[2019-07-27] MEDS: PRENATAL VITAMINS W/ FOLIC ACID TABLET (FP) PO SCH (09:36)
[2019-07-27] MEDS: FINASTERIDE 5 MG TABLET (FP) PO SCH (09:37)
[2019-07-27] MEDS: MECLIZINE HCL 25 MG TABLET (FP) PO PRN ×2 (09:40→21:03)
[2019-07-27] MEDS: amLODIPine BESYLATE 10 MG TABLET (FP) PO SCH (10:33)
[2019-07-27] MEDS: LISINOPRIL 10 MG TABLET (FP) PO SCH (10:33)
[2019-07-27] MEDS: traZODone HCL 50 MG TABLET (FP) PO SCH (21:03)
[2019-07-27] MEDS: TAMSULOSIN HCL 0.4 MG CAP PO SCH (21:03)
[2019-07-27] MEDS: THIAMINE HCL 100 MG TABLET (FP) PO SCH (21:04)
[2019-07-27] MEDS: risperiDONE 2 MG TABLET PO SCH (21:04)
[2019-07-28] MEDS: MECLIZINE HCL 25 MG TABLET (FP) PO PRN ×2 (06:39→21:06)
[2019-07-28] MEDS: valACYclovir HCL 500 MG TABLET (FP) PO SCH (09:56)
[2019-07-28] MEDS: PRENATAL VITAMINS W/ FOLIC ACID TABLET (FP) PO SCH (09:57)
[2019-07-28] MEDS: amLODIPine BESYLATE 10 MG TABLET (FP) PO SCH (09:57)
[2019-07-28] MEDS: FINASTERIDE 5 MG TABLET (FP) PO SCH (09:57)
[2019-07-28] MEDS: LISINOPRIL 10 MG TABLET (FP) PO SCH (09:57)
--- NOTE | 2019-07-28 10:37 | PN ---
[facility] Progress Note Note: Patient is scheduled for discharge tomorrow. Scripts for 30 days supply of medications(Risperdal 2 mg/hs, Trazadone 50 mg/hs) [facility] [address] [place] [address]
[2019-07-28] MEDS: TAMSULOSIN HCL 0.4 MG CAP PO SCH (21:05)
[2019-07-28] MEDS: traZODone HCL 50 MG TABLET (FP) PO SCH (21:06)
[2019-07-28] MEDS: risperiDONE 2 MG TABLET PO SCH (21:06)
[2019-07-28] MEDS: THIAMINE HCL 100 MG TABLET (FP) PO SCH (21:07)
[2019-07-29] MEDS: MECLIZINE HCL 25 MG TABLET (FP) PO PRN ×4 (07:00→21:05)
[2019-07-29] MEDS: amLODIPine BESYLATE 10 MG TABLET (FP) PO SCH (09:59)
[2019-07-29] MEDS: FINASTERIDE 5 MG TABLET (FP) PO SCH (09:59)
[2019-07-29] MEDS: LISINOPRIL 10 MG TABLET (FP) PO SCH (09:59)
[2019-07-29] MEDS: valACYclovir HCL 500 MG TABLET (FP) PO SCH (09:59)
[2019-07-29] MEDS: PRENATAL VITAMINS W/ FOLIC ACID TABLET (FP) PO SCH (10:00)
[2019-07-29] MEDS: traZODone HCL 50 MG TABLET (FP) PO SCH (21:04)
[2019-07-29] MEDS: THIAMINE HCL 100 MG TABLET (FP) PO SCH (21:04)
[2019-07-29] MEDS: risperiDONE 2 MG TABLET PO SCH (21:04)
[2019-07-29] MEDS: TAMSULOSIN HCL 0.4 MG CAP PO SCH (21:05)
[2019-07-30] MEDS: FINASTERIDE 5 MG TABLET (FP) PO SCH (10:12)
[2019-07-30] MEDS: LISINOPRIL 10 MG TABLET (FP) PO SCH (10:12)
[2019-07-30] MEDS: MECLIZINE HCL 25 MG TABLET (FP) PO PRN ×2 (10:12→21:03)
[2019-07-30] MEDS: amLODIPine BESYLATE 10 MG TABLET (FP) PO SCH (10:12)
[2019-07-30] MEDS: valACYclovir HCL 500 MG TABLET (FP) PO SCH (10:12)
[2019-07-30] MEDS: PRENATAL VITAMINS W/ FOLIC ACID TABLET (FP) PO SCH (10:14)
[2019-07-30] MEDS: risperiDONE 2 MG TABLET PO SCH (21:03)
[2019-07-30] MEDS: THIAMINE HCL 100 MG TABLET (FP) PO SCH (21:03)
[2019-07-30] MEDS: traZODone HCL 50 MG TABLET (FP) PO SCH (21:03)
[2019-07-30] MEDS: TAMSULOSIN HCL 0.4 MG CAP PO SCH (21:03)
[2019-07-31] MEDS: MECLIZINE HCL 25 MG TABLET (FP) PO PRN ×2 (06:52→21:06)
[2019-07-31] MEDS: valACYclovir HCL 500 MG TABLET (FP) PO SCH (10:33)
[2019-07-31] MEDS: PRENATAL VITAMINS W/ FOLIC ACID TABLET (FP) PO SCH (10:33)
[2019-07-31] MEDS: amLODIPine BESYLATE 10 MG TABLET (FP) PO SCH (10:33)
[2019-07-31] MEDS: LISINOPRIL 10 MG TABLET (FP) PO SCH (10:34)
[2019-07-31] MEDS: FINASTERIDE 5 MG TABLET (FP) PO SCH (10:35)
--- NOTE | 2019-07-31 16:01 | DS ---
[facility] Rehab Discharge Summary - [facility] Rehab Discharge Summary Admission Date: 07/18/19 Discharge Date: 08/01/19 - History Present History: Alcohol dependence, Cocaine dependence Additional Comments: Pt is a 59 y/o male with a hx of IVETT admitted to rehab and scheduled for discharge on 08/01/19. Pt has been referred to follow up with aftercare and primary care with [facility]. Pertinent Past History: HTN COPD BPH Genital Herpes Paranoid Schizophrenia - Discharge Physical Exam Vital Signs: Vital Signs Temperature 97.7 F 07/31/19 06:57 Pulse Rate 101 H 07/31/19 10:00 Respiratory Rate 18 07/31/19 06:57 Blood Pressure 121/83 07/31/19 10:00 O2 Sat by Pulse Oximetry (%) Alert o x 3,denies s/h/i nad oob ambulating with steady gait Cardiac:s1 s2,rrr lungs;cta,devin. abdomen:+bs,soft,nt,nd extremities/skin:no edema,varicose veins on right lower leg;skin intact. Pertinent Admission Physical Exam Findings: Laboratory Tests 07/18/19 07/18/19 07/18/19 11:20 11:20 11:20 WBC 6.2 RBC 5.51 Hgb 13.1 Hct 42.3 MCV 76.8 L MCH 23.8 L MCHC 31.0 L RDW 14.5 Plt Count 177 MPV 8.3 Sodium 139 Potassium 3.4 L Chloride 109 H Carbon Dioxide 21 Anion Gap 9 BUN 16.8 Creatinine 1.2 Est GFR (CKD-EPI)AfAm 75.19 Est GFR (CKD-EPI)NonAf 64.87 Random Glucose 98 Calcium 8.4 L Total Bilirubin 0.4 AST 32 ALT 31 Alkaline Phosphatase 58 Total Protein 6.6 Albumin 3.4 Urine Color Urine Appearance Urine pH Ur Specific [place] Urine Protein Urine Glucose (UA) Urine Ketones Urine Blood Urine Nitrite Urine Bilirubin Urine Urobilinogen Ur Leukocyte Esterase Urine WBC (Auto) Urine RBC (Auto) Urine Casts (Auto) U Epithel Cells (Auto) Urine Bacteria (Auto) RPR Titer Nonreactive 07/20/19 08:35 WBC RBC Hgb Hct MCV MCH MCHC RDW Plt Count MPV Sodium Potassium Chloride Carbon Dioxide Anion Gap BUN Creatinine Est GFR (CKD-EPI)AfAm Est GFR (CKD-EPI)NonAf Random Glucose Calcium Total Bilirubin AST ALT Alkaline Phosphatase Total Protein Albumin Urine Color Yellow Urine Appearance Clear Urine pH 6.5 Ur Specific [place] 1.008 L Urine Protein Negative Urine Glucose (UA) Negative Urine Ketones Negative Urine Blood 1+ H Urine Nitrite Negative Urine Bilirubin Negative Urine Urobilinogen 0.2 Ur Leukocyte Esterase 3+ H Urine WBC (Auto) 62 Urine RBC (Auto) 8 Urine Casts (Auto) 27 U Epithel Cells (Auto) 0.5 Urine Bacteria (Auto) 90.3 RPR Titer - Treatment Discharge Condition: Discharge condition good Hospital Course: Rehabilitated safely, Responded well Participated in group activities and individual sessions in treatment. - Medication Discharge Medications: Ambulatory Orders Albuterol Sulfate Inhaler - [Ventolin HFA Inhaler -] 1 - 2 inh PO QID PRN Lisinopril 10 mg PO DAILY 11/22/18 Meclizine HCl 25 mg PO TID PRN 11/22/18 Tamsulosin HCl [Flomax] 0.4 mg PO HS 11/22/18 Valacyclovir HCl [Valtrex] 500 mg PO DAILY 11/22/18 Amlodipine Besylate 10 mg PO DAILY 07/18/19 Finasteride 5 mg PO DAILY 07/18/19 Risperidone [Risperdal -] 2 mg PO HS #30 tablet 07/28/19 traZODone HCL [Trazodone HCl] 50 mg PO HS #30 tablet 07/28/19 - Medication-Assisted Treatment (MAT) Medication-Assisted Treatment (MAT): No - Discharge Instructions Diet, activity, other medical instructions: Diet:HTN Activity: oob ad rosa isela Other medical instructions:Follow up with primary care and CD aftercare at [facility] as scheduled - Diagnosis (1) Alcohol use disorder Current Visit: Yes Status: Chronic (2) Cocaine dependence Current Visit: Yes Status: Chronic Qualifiers: Substance use status: uncomplicated Qualified Code(s): F14.20 - Cocaine dependence, uncomplicated (3) Nicotine dependence Current Visit: Yes Status: Chronic Qualifiers: Nicotine product type: cigarettes Substance use status: uncomplicated Qualified Code(s): F17.210 - Nicotine dependence, cigarettes, uncomplicated (4) BPH (benign prostatic hyperplasia) Current Visit: Yes Status: Chronic Qualifiers: Lower urinary tract symptom presence: unspecified whether lower urinary tract symptoms present Qualified Code(s): N40.0 - Benign prostatic hyperplasia without lower urinary tract symptoms (5) Hypertension Current Visit: Yes Status: Acute Qualifiers: Hypertension type: essential hypertension Qualified Code(s): I10 - Essential (primary) hypertension (6) History of COPD Current Visit: Yes Status: Chronic (7) Hx of herpes genitalis Current Visit: Yes Status: Chronic (8) Varicose vein of leg Current Visit: Yes Status: Chronic Qualifiers: Varicose vein complication: pain - Follow-up Referral Minutes to complete discharge: 20 - AMA Did Patient Leave Against Medical Advice: No Additional Comments: Pt states he has own meds and will not be needing courtesy Rx today.
[2019-07-31] MEDS: TAMSULOSIN HCL 0.4 MG CAP PO SCH (21:05)
[2019-07-31] MEDS: traZODone HCL 50 MG TABLET (FP) PO SCH (21:06)
[2019-07-31] MEDS: THIAMINE HCL 100 MG TABLET (FP) PO SCH (21:06)
[2019-07-31] MEDS: risperiDONE 2 MG TABLET PO SCH (21:06)
[2019-08-01] MEDS: MECLIZINE HCL 25 MG TABLET (FP) PO PRN ×2 (06:50→09:25)
[2019-08-01 07:00] VITALS: BP 117/64; PULSE 89; TEMP 97.1
[2019-08-01] MEDS: LISINOPRIL 10 MG TABLET (FP) PO SCH (09:25)
[2019-08-01] MEDS: PRENATAL VITAMINS W/ FOLIC ACID TABLET (FP) PO SCH (09:25)
[2019-08-01] MEDS: valACYclovir HCL 500 MG TABLET (FP) PO SCH (09:25)
[2019-08-01] MEDS: amLODIPine BESYLATE 10 MG TABLET (FP) PO SCH (09:27)
[2019-08-01] MEDS: FINASTERIDE 5 MG TABLET (FP) PO SCH (09:27)
--- NOTE | 2019-08-01 10:08 | PN ---
S Progress Note Note: Pt is discharged today as scheduled. Vital Signs - 24 hr 08/01/19 08/01/19 08/01/19 00:30 03:30 06:59 Temperature 97.1 F L Pulse Rate 89 Respiratory 18 16 18 Rate Blood Pressure 117/64 Alert o x 3,well groomed;denies s/h/i nad oob ambulating with steady gait A/P Medically stable D/C pt as scheduled today. Reminded pt to f/u with all recommended referrals to CD aftercare and PCP.
== END 2019-08-01 09:35 | disposition home or self-care (01) | DRG 772 ==
LOC: YASAS 09:46 → Y5N 10:53
PROVIDERS: ADMIT Neuromusculoskeletal Medicine & OMM; ATTEND Neuromusculoskeletal Medicine & OMM
PROC: HZ42ZZZ Group Counseling for Substance Abuse Treatment, Cognitive-Behavioral (ICD-10-PCS; principal; 2019-07-18)
DX: F10.20 Alcohol dependence, uncomplicated (principal); F14.20 Cocaine dependence, uncomplicated; F17.210 Nicotine dependence, cigarettes, uncomplicated; F20.0 Paranoid schizophrenia; I10 Essential (primary) hypertension; J44.9 Chronic obstructive pulmonary disease, unspecified; N40.0 Benign prostatic hyperplasia without lower urinary tract symptoms; I83.91 Asymptomatic varicose veins of right lower extremity; Z86.19 Personal history of other infectious and parasitic diseases; Z87.442 Personal history of urinary calculi
CPT/HCPCS: 36415; 80053; 81003; 85027; 86593